=== PATIENT | female | born 1995 | race Caucasian/White ===

== ENCOUNTER 2022-04-30 14:07 | Emergency (ER) | payer MEDICAID ==
[~2022-04-30] VITALS: Ht 175.3 cm; Wt 68.9 kg
[2022-04-30 14:16] VITALS: BP 143/76
--- NOTE | 2022-04-30 14:16 | NUR ---
BIBS W/ C/O FEVER, SOB, CONGESTION, CLOGGED EAR AND BODYACHES SINCE THURSDAY. TO ER BED 7.
--- NOTE | 2022-04-30 14:28 | NUR ---
DR MORALES AT BEDSIDE FOR EVAL
[2022-04-30] MEDS ORDERED: IBUPROFEN 600 MG TABLET ONE (14:54)
[2022-04-30] MEDS ORDERED: LORATADINE 10 MG TABLET ONE (14:54)
--- NOTE | 2022-04-30 14:54 | NUR ---
RAPID COVID SWAB AND RAPID FLU SWAB OBTAINED AND SENT TO LAB
[2022-04-30] MEDS ORDERED: IPRA12.9 INH (14:55)
[2022-04-30] MEDS ORDERED: ALBU18HF2 INH (14:55)
[2022-04-30] MEDS ORDERED: LORA10TA68 PO (14:55)
[2022-04-30] MEDS ORDERED: IBUPROFEN 600 MG TABLET PO ONE (15:00)
[2022-04-30] MEDS ORDERED: LORATADINE 10 MG TABLET PO ONE (15:00)
--- NOTE | 2022-04-30 15:15 | NUR ---
Patient discharged to home in stable condition. Written and verbal after care instructions given. Patient verbalizes understanding of instruction.
== END 2022-04-30 15:15 | disposition home or self-care (01) ==
LOC: ER 14:21
DX: J10.1 Influenza due to other identified influenza virus with other respiratory manifestations (principal); J45.909 Unspecified asthma, uncomplicated; Z20.822 Contact with and (suspected) exposure to COVID-19
CPT/HCPCS: 99283; 87426; 87804; C9803